=== PATIENT | female | born 1950 | race Caucasian/White ===

== ENCOUNTER 2020-11-13 12:35 | Emergency (ER) | payer MEDICARE, MEDICAID, SELFPAY ==
[2020-11-13 12:36] VITALS: BP 150/112; PULSE 103; RESP 18; TEMP 36.1; O2SAT 98; BMI 40.5
--- NOTE | 2020-11-13 12:58 | EKG12_ITS ---
Test Reason : Blood Pressure : / mmHG Vent. Rate : 095 BPM Atrial Rate : 095 BPM P-R Int : 158 ms QRS Dur : 092 ms QT Int : 380 ms P-R-T Axes : 052 -58 052 degrees QTc Int : 477 ms Sinus rhythm with marked sinus arrhythmia Left axis deviation Left ventricular hypertrophy Abnormal ECG Confirmed by SUSHIL PRATT, DEJON ([id number]), editor index MERRILL CABA ([id number]) on 11/17/2020 9:52:50 AM Referred By: JESSICA Confirmed By:JOSÉ MIGUEL LING MD
--- NOTE | 2020-11-13 13:11 | CT_ITS ---
STUDY: CT BRAIN WITHOUT CONTRAST REASON FOR EXAM: Female, 70 years old. Dizziness RADIATION DOSAGE (If Supplied By Facility): CTDIvol = ( 44.99 ) mGy, DLP = ( 796.11 ) mGycm TECHNIQUE: Transaxial CT imaging of the brain was performed without administration of intravenous contrast material. Individualized dose optimization techniques were used for this CT. COMPARISON: No relevant priors. FINDINGS: Normal soft tissue structures. Normal calvarium. Normal size ventricles and extra-axial spaces for the patient''s age. Normal white matter tracts of the cerebral hemispheres. Normal basal ganglia and thalami. Normal brainstem. Normal cerebellum. There is no intracranial hemorrhage. There are no findings of an acute ischemic infarction. Normal visualized paranasal sinuses. CT/Brain/Head without Contrast IMPRESSION: Normal unenhanced CT scan of the brain. Electronically Signed: Dinesh Peng MD at 14:01 EDT , Service support ,
--- NOTE | 2020-11-13 13:12 | ED.DCSUM_ITS ---
- ER Visit Summary Date of Service: 11/13/20 Chief Complaint: Dizziness, nausea vomiting and chills. History of Present Illness: The patient is a [address] of reflux, back pain and prior thyroid cancer which she had thyroidectomy. Patient states that she received her first met during Covid vaccination September 25 and her second on October 30. She has had intermittent dizziness the last several weeks. Intermittent nausea vomiting. She denies diarrhea. She denies dysuria. She denies headache or head trauma. She denies any strokelike symptoms. She was seen by a physician ophthalmic medical assistant today at the [facility] and was referred to our emergency department. She denies any recent hospitalization or prior symptoms like this. She thinks it may be secondary to the vaccination. Physical Examination: Well-appearing 62-year-old female. No acute distress. Vital signs stable afebrile. Initial blood pressure elevated at 150/112. HEENT exam normal. Pupils round reactive light. No facial droop. Normal speech. Neck nontender. Lungs clear to auscultation bilaterally. Heart regular rhythm rate in 90s no murmur. Chest wall nontender. Abdomen soft nontender. Patient moving all 4 extremities. Neurovascular intact. 5-5 adoption agent strength bilaterally. Dorsi plantarflexion intact. Neurologically she is awake alert. No focal motor or sensory deficits. NIH score is 0. Fingertip to nose within normal limits. No drift with either upper or lower extremities. Normal speech. Test Results: Chest x-ray portable 1 view interpreted by myself and radiologist shows no acute abnormality. CT brain is read by the radiologist and reviewed by me shows no acute abnormality. EKG normal sinus rhythm rate of 95 no acute signs of SC, ischemia or dysrhythmia. CBC white count of 12 hemoglobin 15 no bands chemistries unremarkable potassium 3.3. Normal gap normal creatinine. Troponin normal. Repeat exam patient doing well at 2:15 PM. Repeat exam normal. Patient I went over all her test results she is comfortable being discharged home. Emergency Department Course and Treatment: Bro-gyuk-djp female with multiple complaints. Exam is unremarkable. She has a normal neurologic exam. She will undergo screening labs along with a CT of her brain. Treatment Plan: All the primary care physician. Zofran for nausea. Return if worse. Disposition: Discharge Impression: Acute dizziness etiology This note was generated with Ex[employer] dictation software. It may contain incorrect words, spelling, and punctuation that were not noted in review of the chart prior to signing ED Disposition - Plan for ED Patient: Referrals: Rebel Blanca MD [Primary Care Provider] -
[2020-11-13] MEDS: Aspirin 81 MG TAB.CHEW 324 MG PO (13:19)
[2020-11-13 13:32] LABS: Absolute Lymphocyte Count 3.05 X10^3/uL (0.83-4.51); Absolute Neutrophil Count 7.8 X10^3/uL (2.0-7.7); Basophil# 0.06 X10^3/uL; Basophil% 0.5 % (0-1); Eosinophil# 0.13 X10^3/uL; Eosinophils% 1.1 % (0-5); Hematocrit 48.8 % (37-47); Hemoglobin 15.7 g/dL (12.0-15.0); Lymphocyte # 3.05 X10^3/ul (0.83-4.51); Lymphocyte % 25.4 % (19-41); Mean Corp Hgb Conc 32.2 g/dL (32-36); Mean Corpuscular Hgb 28.8 pg (27.0-32.0); Mean Corpuscular Volume 89.4 fL (81-99); Mean Platelet Vol. 10.6 fl (6.2-12.0); Monocyte# 0.89 X10^3/uL; Monocyte% 7.4 % (0-10); NRBC Flagged by Analyzer 0 % (0-5); Neutrophil # 7.81 X10^3/uL (2.7-7.7); Neutrophil % 65.2 % (47-70); Platelet Count 416 K/mm3 (150-450); RBC Distribution Width CV 13.5 % (11.6-14.6); Red Blood Count 5.46 M/mm3 (4.2-5.4)
--- NOTE | 2020-11-13 13:35 | RAD_ITS ---
STUDY: X-RAY CHEST REASON FOR EXAM: Female, 70 years old. Chest pain TECHNIQUE: Single AP portable view of the chest. COMPARISON: Comparison is made with prior study dated 02/07/2014. FINDINGS: EKG electrodes are seen. Hyperinflation. Increased bronchovascular markings in the upper lobes suggestive of emphysematous changes. There is no demonstrated pleural abnormality. Normal size heart. Normal mediastinum and nino. Normal visualized pulmonary arteries. There is atherosclerotic tortuosity of the aortic arch and descending thoracic aorta. There are diffuse degenerative changes of the visualized thoracic spine. Normal visualized ribs, clavicles, and shoulders. There is no demonstrated abnormality of the visualized soft tissue structures of the upper abdomen. RAD/Chest 1 View (Portable) IMPRESSION: Hyperinflation. The lungs are clear. Electronically Signed: Dinesh Peng MD at 14:02 EDT , Service support ,
[2020-11-13 13:42] LABS: Anion Gap 8 (5-15); BUN 12 mg/dL (7-18); BUN/Creat Ratio 12.4 RATIO (10-20); Calcium,Total 9.8 mg/dL (8.5-10.1); Chloride 102 mmol/L (98-107); Creatinine, Serum 0.96 mg/dL (0.55-1.02); EST Glomerular Filtration Rate 61 mL/min (>60); Est Glom Filt Rate - Afr Amer 74 mL/min (>60); Estimated Creatinine Clearance 52.51 ml/min; Glucose 96 mg/dL (74-106); Potassium 3.3 mmol/L (3.5-5.1); Sodium Level 136 mmol/L (136-145)
[2020-11-13 14:04] VITALS: BP 150/100; PULSE 69; RESP 12; O2SAT 97
--- NOTE | 2020-11-13 14:29 | ED.DEP ---
ED Disposition - Plan for ED Patient: Disposition: Home or Assisted Living Instructions: ED Dizziness, Uncertain Cause Prescriptions: Ondansetron [Zofran Odt] 4 mg PO Q8H PRN PRN #10 tablet PRN Reason: Nausea Prescription Printed Referrals: Rebel Blanca MD [Primary Care Provider] - 1 Week if not improving Additional Instructions: Zofran as needed for nausea. Your CAT scan lab work, EKG and chest x-ray were unremarkable today. This should continue to improve if not follow-up with your doctor for further evaluation or return if you are feeling a lot worse.
== END 2020-11-13 14:39 | disposition home or self-care (01) ==
PROVIDERS: Emergency Provider Emergency Medicine; PCP Family Medicine
DX: R42 Dizziness and giddiness (principal); R11.2 Nausea with vomiting, unspecified; K21.9 Gastro-esophageal reflux disease without esophagitis; E89.0 Postprocedural hypothyroidism; Z85.850 Personal history of malignant neoplasm of thyroid; Z79.899 Other long term (current) drug therapy
CPT/HCPCS: 70450; 71045; 80048; 84484; 85025; 93005; 99285; A4216

== ENCOUNTER → 2022-01-15 | Outpatient (CLI) | payer MEDICARE, MEDICAID, SELFPAY ==
--- NOTE | 2022-01-15 09:55 | STRESSREP_ITS ---
Stress Test Report Date: 01-15-2022 Procedure: Pharmacologic stress nuclear imaging study Indications: Chest pain; dyspnea on exertion; abnormal ECG Consent: Per the patient Procedure: The patient underwent pharmacologic (Regadenoson 0.4mg ) evaluation with a peak heart rate of 86 beats per minute (56%predicted maximal heart rate) and a peak blood pressure of 164/92 mmHg. The baseline ECG demonstrated sinus rhythm. The peak pharmacologic ECG demonstrated no obvious ECG changes. There were no cardiac dysrhythmias pretest, during pharmacologic infusion, or recovery. There was no complaint of chest discomfort during pharmacologic infusion or recovery. The examination was discontinued secondary to completion of protocol. Impression: 1. Pharmacologic (Regadenoson) evaluation 2. Peak pharmacologic ECG with no obvious ECG changes. 3. There were no cardiac dysrhythmias pretest, during pharmacologic infusion, or recovery. 4. Nuclear images pending Myocardial perfusion imaging study: Technique: The patient was injected with 14.7 millicuries of technetium 99m Cardiolite and subsequently rest SPECT Cardiolite nuclear imaging was obtained in the horizontal long, vertical long, and short axis views. The patient underwent pharmacologic (Regadenoson) evaluation with a peak heart rate of 86 beats per minute (56% percent predicted maximal heart rate) and a peak blood pressure of 164/92 mmHg. The patient was injected with 44.9 millicuries of technetium 99m Cardiolite and subsequently stress SPECT Cardiolite nuclear imaging was obtained in the horizontal long, vertical long, and short axis views. A gated Cardiolite study at peak stress was obtained. Interpretation: Rest and stress SPECT Cardiolite nuclear imaging status post realignment, normalization, and attenuation correction demonstrate relative uniform tracer uptake and myocardial perfusion appearing within normal limits. There is end systolic thickening and brightening. The gated Cardiolite study demonstrates myocardial thickening and inward wall motion. The reported LVEF is 61%. Impression: 1. Rest and stress SPECT Cardiolite nuclear imaging demonstrate relative uniform tracer uptake and myocardial perfusion appearing within normal limits. 2. The gated Cardiolite study reports an LVEF of 61%. This note was generated with [employer] Mobileation software. It may contain incorrect words, spelling, and punctuation that were not noted in checking the note before signing.
== END | disposition home or self-care (01) ==
LOC: CVS 06:34
PROVIDERS: PCP Family Medicine; Visit Provider Nurse Practitioner Family
DX: R07.89 Other chest pain (principal); R94.31 Abnormal electrocardiogram [ECG] [EKG]; R06.09 Other forms of dyspnea
CPT/HCPCS: 78452; 93017; A9500; A4216; J2785

== ENCOUNTER 2024-12-04 16:00 | Outpatient (RCR) | payer MEDICARE, MEDICAID, SELFPAY ==
--- NOTE | 2024-07-31 13:49 | HP.OTEVAL ---
Patient's Visit Information Visit Information Visit Information: JOEL PEARCE is a 73 year old F, referred to Occupational Therapy by Dr. Ky Valverde MD, with a diagnosis of OA of 1st cmc joint left hand. 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 pt states she has symptoms for a few years- states she suffered fall December 2023 and since then her pain was just to much to handle and wearing braces was not helpful- pt decided to have sx. pt currently 1 week and 4 days s/p from a left CMC arthroplasty with tenon transfer and suspension sx. pt underwent sx on 07/19/24. pt states said she could lift up to 5# but no more than 5# pt arrives with soft surgical splint on. Pain left hand: Current Pain Intensity: 3 Pain Intensity Range: 3 ROM Wrist: right 65/60 left 30/10 CMC: right 10 left NT MP: right 50 left 15* IP: right 50 left 30* Palmar Abduction: right 45 left NT ROM Comments: will test left CMC and PA motion at later date Strength Patient Office Rep: right 40# left NT Lateral Pinch: right 18# left NT Tripod Pinch: right 16# left NT Sensation Sensation Comments: denies Goals Comment: follow CC cmc arthroplasty guidelines Goal:Daily scar massage when approriate: Yes Goal:ROM equal to unaffected hand: Yes Goal:Patient Office Rep/Pinch strength at least 75% of unaffected hand: Yes Comment: not to initiate until week 6-8 based on surgeon Goal:No pain with affected hand use: Yes Goal:Full use of affected hand in daily activities including work: Yes Goal:Decrease scar hypersensitivity: Yes Other Goal: orthosis use: pt will demo IND donning and doffing of custom orthosis by end of 1st session. pt will demo understanding of needing to use orthosis at all times until POC is changed by end of 1st session. Rehabilitation General Assessment: pt arrives s/p 11 days from left CMC arthroplasty with tendon transfer and suspension. pt arrives with soft surgical splint on in need of custom orthosis to provide support and protection while newly healing structures stabilize. pt currently is limited with all ADLs and IADLs at this time. states she is just using her right hand for all tasks. pt would benefit from skilled OT services 1-2x week for 12 weeks to return pt to her PLOF. Today therapist following Dr. dalal for orthoplast orthosis custom and motion program for s/p cmc arthroplasty. Today therapist kesha. custom orthosis ed. pt on use and precautions- pt demo understanding- therapist ed, pt on edema control- tendon glides for fingers and IP flexion for left thumb- pt demo understanding and agree to POC. Rehabilitation Potential: Good Anticipated Interventions Anticipated Interventions: A/AAROM/PROM, Strengthening, Edema Control, Scar Care, Triggerpoint Release, Modalities, Orthoses, Joint Protection/Energy Conservation, Ergonomic Education, Education re assistive Equipment, Education re Diagnosis and Home Program Visit Plan Frequency: 1-2x /Week Duration: 3 Months General Plan: if pt has increased pain or swelling will transition pt slower with CC cmc arthroplasty guidelines kesha. volar based forearm thumb spica in slight palmar abduction with IP free- week 4 ROM to wrist fingers and thumb Avoid thumb extension edema control- scar mtg. Week 5-9: Modalities at needed ROM and functional use of hand week 10: weaned from orthosis may use comfort cool thumb spica as needed week 12- gentle strengthening- thumb for C or O position- wrist PRE TEXT: Thank you for the opportunity to evaluate your patient. For Medicare and Medicare HMO plans, please review the plan of care and approve it. It will need to be FAXED BACK to us at [phone] for Medicare purposes. Please let me know if there are questions or concerns regarding this plan of care. Physician Signature: Date:
--- NOTE | 2025-03-28 09:50 | HP.OT.NRP ---
Patient Information Patient Information: JOEL PEARCE was seen in my office for initial evaluation on 07/30/24. The following Plan of Care was established for this patient: POC Established Initial Frequency: 1-2x /Week Initial Duration: 3 Months Plan: General Plan: if pt has increased pain or swelling will transition pt slower with CC cmc arthroplasty guidelines kesha. volar based forearm thumb spica in slight palmar abduction with IP free- week 4 ROM to wrist fingers and thumb Avoid thumb extension edema control- scar mtg. Week 5-9: Modalities at needed ROM and functional use of hand week 10: weaned from orthosis may use comfort cool thumb spica as needed week 12- gentle strengthening- thumb for C or O position- wrist PRE Anticipated Interventions Anticipated Interventions: A/AAROM/PROM, Strengthening, Edema Control, Scar Care, Triggerpoint Release, Modalities, Orthoses, Joint Protection/Energy Conservation, Ergonomic Education, Education re assistive Equipment, Education re Diagnosis and Home Program Last Seen Last Seen: This patient was last seen in our office 12/04/24. Pertinent comments regarding their Occupational therapy will appear below: No further apts have been scheduled. Due to time lapse in service pt is d/c. At this point I will be discontinuing this patient from occupational therapy. I would be happy to see this patient again in the future if found appropriate by the physician. Thank you! Beena Cabrera, OTR/L, CHT
== END 2024-12-04 19:00 | disposition home or self-care (01) ==
LOC: OT 16:00
PROVIDERS: PCP Family Medicine; Referring Provider Orthopaedic Surgery; Visit Provider Orthopaedic Surgery
DX: M18.12 Unilateral primary osteoarthritis of first carpometacarpal joint, left hand (principal)
CPT/HCPCS: 97110; 97140; 97166; 97530; 97760

== ENCOUNTER → 2025-03-22 | Outpatient (CLI) | payer MEDICARE, MEDICAID, SELFPAY ==
--- NOTE | 2025-03-22 14:26 | CT_ITS ---
PROCEDURE: SINUS/FACIAL BONE 03/22/2025 REASON FOR EXAM: OTHER CHRONIC SINUSITIS TECHNIQUE: Procedure Code: CTSI Modality: CT Procedure: SINUS/FACIAL BONE Coronal and Sagittal reconstruction series were provided. One or more dose reduction techniques were used (e.g., Automated exposure control, adjustment of the mA and/or kV according to patient size, use of iterative reconstruction technique). RADIATION DOSE SUMMARY: CTDlvol: 33.06 mGy DLP: 817.32 mGycm COMPARISON: None. FINDINGS: The bony margins of the orbits and maxillary sinuses are intact. The zygomatic arches are intact. The maxilla is intact. The temporomandibular joints are normal without fracture or dislocation. The mandible is intact. The nasal bones are intact. The maxillary spine is intact. There is mucoperiosteal thickening of the frontal sinuses. There is obstruction of the left frontoethmoidal recess. There is mucoperiosteal thickening of the ethmoidal sinuses. There is mild mucoperiosteal thickening of both maxillary sinuses. There are bilateral Matt cells. The patient is status post FESS with bilateral uncinectomy. There is a mucous retention cyst in the right sphenoid sinus. There is right claudine bullosa. There is nasal septal deviation to the left. The skull base is intact. The mastoid air cells are clear. There is severe arthritis of the atlantodental joint. There is degenerative disc disease, C3-4 and C4-5. There is calcific vascular disease of the intracranial portion of both internal carotid arteries. The visualized intracranial contents are otherwise unremarkable. The intraorbital contents are normal. There are no soft tissue abnormalities. CT/Sinus/Facial Bone IMPRESSION: 1. Mild diffuse sinus disease. 2. Status post FESS with bilateral uncinectomy. 3. Other findings as noted. Reading Location: [id number]
== END | disposition home or self-care (01) ==
PROVIDERS: PCP Family Medicine; Referring Provider Otolaryngology; Visit Provider Otolaryngology
DX: J32.8 Other chronic sinusitis (principal)
CPT/HCPCS: 70486